=== PATIENT | female | born 1970 | race Caucasian/White ===

== ENCOUNTER → 2017-12-27 08:09 | Outpatient (CLI) | payer BC, SELFPAY ==
[2017-12-27 09:37] LABS: Hemoglobin A1C 5.7 % (0.0-7.0)
[2017-12-27 10:29] LABS: Alanine Aminotransferase 36 U/L (12-78); Albumin/Globulin Ratio 1.2 (1.1-1.8); Alkaline Phosphatase 66 U/L (46-116); Anion Gap 12.6 mEq/L (5-15); Aspartate Amino Transferase 24 U/L (15-37); Bilirubin,Total 0.9 mg/dL (0.2-1.0); Blood Urea Nitrogen 15 mg/dL (7-18); Calcium 9.2 mg/dL (8.5-10.1); Carbon Dioxide 29 mmol/L (21.0-32.0); Chloride 103 mmol/L (98-107); Chol/HDL Ratio 4.4 (1-3.5); Cholesterol 163 mg/dL (140-200); Estimated Glomerular Filt Rate 67 ml/min (>60); GFR (African American) 81 ML/MIN (>60); Globulin 3.3 gm/dl (1.3-3.2); Glucose 145 mg/dL (74-106); HDL Cholesterol 37 mg/dL (29-89); LDL Cholesterol 88 mg/dL (0-130); Potassium 3.6 mmoL/L (3.5-5.1); Sodium 141 mmol/L (136-145); Thyroid Stimulating Hormone 3.17 uIU/ml (0.358-3.740); Total Protein,Serum 7.3 gm/dL (6.4-8.2); Triglycerides 191 mg/dL (30-200); VLDL Cholesterol 38 mg/dL (0-40)
== END ==
PROVIDERS: Visit Provider Nurse Practitioner Family
DX: E11.9 Type 2 diabetes mellitus without complications (principal); E03.9 Hypothyroidism, unspecified
CPT/HCPCS: 36415; 80053; 80061; 83036; 84443

== ENCOUNTER → 2018-07-24 10:32 | Outpatient (CLI) | payer BC, SELFPAY ==
--- NOTE | 2018-07-24 10:45 | CT_ITS ---
CT abdomen pelvis wo con INDICATION: Right flank pain right lower quadrant pain ITS.REASON: RT SIDE LOW BACK PAIN,HEMATURIA ORDERING PHYSICIAN: Iraida Carey PATIENT AGE: 47 years COMPARISON: June 06, 2008 CT abdomen pelvis. TECHNIQUE: No oral nor IV contrast utilized. Axial images obtained with sagittal and coronal reformats. All CT scans at the facility use one or more dose reduction, viz: automated exposure control, ma/kV adjustment per patient size (including targeted exams where dose is matched to indication, i.e. head), or iterative reconstruction technique. FINDINGS: . Lung bases no significant acute findings. Slight coarsening markings at posterior lung bases reflecting some mild chronic changes and atelectasis. Similar to 2008. Heart upper normal in size. Abdomen/pelvis to the lack of oral and IV contrast decreases sensitivity Noncontrast images the liver, spleen, pancreas, adrenals unremarkable. TRACT: Obstructive uropathy on right. RIGHT KIDNEY with mild hydronephrosis. Mild stranding about right kidney most likely reflecting the obstructive uropathy although could reflect early pyelonephritis if findings of such. Right ureteral stone at proximal right ureter. 4.5 mm x 3 mm diameter x 4.5 mm length. This can be seen on the CT filter tip inspector view just to the right of the L2/3 disc space. Finally also note a small just less than 4 mm calculus at upper pole right kidney Left kidney. No calculi. No obstruction. Left ureter unremarkable. PELVIS. Modest size bladder. There is a small curious calcification in the at the periphery of the bladder wall on image 33 is. I suspect is a phlebolith as it resides anterior to a would anticipate the ureter and does not appear to be intraluminal after reviewing all images. IUD in place with the stem of the T slightly skewed to the right as it continues distally the tip of the stem is to the right and I cannot confirm a remains within the endometrial cavity on this CT.. (Axial image 113, coronal. 32) VASCULAR NURSE follow-up suggested this regard Otherwise No adnexal masses or pathology.. No free fluid in cul-de-sac. GI tract. Moderate stool throughout the colon upper normal wall thickness descending colon most likely reflects lack of distention. Terminal ileum unremarkable no good evidence of appendicitis. Small bowel. A few scattered air-fluid levels at proximal small bowel but no significant findings otherwise. Upper normal wall thickness distal esophagus. Osseous structures. No remarkable findings. IMPRESSION 1. Mild right hydronephrosis . Obstructive uropathy on the right. -Due to 4.5 x 3 mm calculus proximal right ureter ( just to the right at L2/3 disc space on filter tip inspector view) ... Associated stranding about the right kidney most likely reflecting the obstructive uropathy. 2. Incidental note that IUD is quite tilted. The inferior stem and tip of IUD seen to deviate significantly to the right and away from the endometrial cavity. Suggest VASCULAR NURSE follow-up, particularly if of pelvic pain or symptoms .
[2018-07-24 12:46] LABS: Hemoglobin A1C 6.2 % (0.0-7.0)
[2018-07-24 13:33] LABS: Alanine Aminotransferase 30 U/L (12-78); Albumin Level 4.1 gm/dL (3.4-5.0); Albumin/Globulin Ratio 1.4 (1.1-1.8); Alkaline Phosphatase 68 U/L (46-116); Anion Gap 9.9 mEq/L (5-15); Aspartate Amino Transferase 15 U/L (15-37); Bilirubin,Total 0.9 mg/dL (0.2-1.0); Blood Urea Nitrogen 22 mg/dL (7-18); Calcium 8.9 mg/dL (8.5-10.1); Carbon Dioxide 30 mmol/L (21.0-32.0); Chloride 104 mmol/L (98-107); Chol/HDL Ratio 3.8 (1-3.5); Cholesterol 150 mg/dL (140-200); Creatinine,Serum 1.26 mg/dL (0.55-1.02); Estimated Glomerular Filt Rate 45 ml/min (>60); GFR (African American) 55 ML/MIN (>60); Glucose 123 mg/dL (74-106); HDL Cholesterol 40 mg/dL (29-89); LDL Cholesterol 81 mg/dL (0-130); Potassium 3.9 mmoL/L (3.5-5.1); Sodium 140 mmol/L (136-145); Thyroid Stimulating Hormone 2.08 uIU/ml (0.358-3.740); Total Protein,Serum 7.1 gm/dL (6.4-8.2); Triglycerides 146 mg/dL (30-200); VLDL Cholesterol 29 mg/dL (0-40)
[2018-07-25 10:17] LABS: Creatinine, Urine 250.9 mg/dL (Not Estab.); Microalbumin, Urine 29.3 ug/mL (Not Estab.)
== END ==
PROVIDERS: PCP Internal Medicine Adolescent Medicine; Visit Provider Nurse Practitioner Family
DX: M54.5 Low back pain (principal); R31.9 Hematuria, unspecified; E11.9 Type 2 diabetes mellitus without complications; E78.5 Hyperlipidemia, unspecified; E03.9 Hypothyroidism, unspecified; I10 Essential (primary) hypertension
CPT/HCPCS: 36415; 74176; 80053; 80061; 82043; 82570; 83036; 84443

== ENCOUNTER → 2018-09-16 09:39 | Outpatient (CLI) | payer BC, SELFPAY ==
[2018-09-16 09:53] LABS: Basophils # 0.1 K/mm3 (0-0.2); Basophils % 0.8 % (0.1-2.0); Eosinophils # 0.1 K/mm3 (0.0-0.4); Eosinophils % 1.9 % (0.1-12.0); Hematocrit 45.2 % (37.0-47.0); Hemoglobin 15.2 g/dL (12.2-16.2); Lymphocytes # 2.1 K/mm3 (0.7-4.5); Lymphocytes % 32.7 % (10-50); Mean Corpuscular HGB Conc 33.7 g/dL (31.8-35.4); Mean Corpuscular Hemoglobin 31.2 pg (27.0-31.2); Mean Corpuscular Volume 92.8 fl (81-99); Monocytes # 0.5 K/mm3 (0.1-1.0); Monocytes % 7.9 % (1.7-9.3); Neutrophils # 3.6 K/mm3 (1.8-7.8); Neutrophils % 56.6 % (37.0-80.0); Platelet Count 289 K/mm3 (142-424); Red Blood Count 4.87 M/mm3 (4.20-5.40); Red Cell Distribution Width 13.1 % (11.5-17.5); White Blood Count 6.4 K/mm3 (4.8-10.8)
[2018-09-16 13:24] LABS: Hemoglobin A1C 5.8 % (0.0-7.0)
[2018-09-16 14:16] LABS: Alanine Aminotransferase 33 U/L (12-78); Albumin/Globulin Ratio 1.3 (1.1-1.8); Alkaline Phosphatase 53 U/L (46-116); Anion Gap 10.6 mEq/L (5-15); Aspartate Amino Transferase 13 U/L (15-37); Bilirubin,Total 0.7 mg/dL (0.2-1.0); Blood Urea Nitrogen 14 mg/dL (7-18); Calcium 9.1 mg/dL (8.5-10.1); Carbon Dioxide 32 mmol/L (21.0-32.0); Chloride 104 mmol/L (98-107); Chol/HDL Ratio 3.6 (1-3.5); Cholesterol 134 mg/dL (140-200); Creatinine,Serum 0.84 mg/dL (0.55-1.02); Estimated Glomerular Filt Rate 72 ml/min (>60); GFR (African American) 87 ML/MIN (>60); Globulin 3.1 gm/dl (1.3-3.2); Glucose 140 mg/dL (74-106); HDL Cholesterol 37 mg/dL (29-89); LDL Cholesterol 75 mg/dL (0-130); Potassium 3.6 mmoL/L (3.5-5.1); Sodium 143 mmol/L (136-145); Thyroid Stimulating Hormone 2.02 uIU/ml (0.358-3.740); Total Protein,Serum 7.1 gm/dL (6.4-8.2); Triglycerides 109 mg/dL (30-200); VLDL Cholesterol 22 mg/dL (0-40)
[2018-09-17 08:12] LABS: Creatinine, Urine 223.1 mg/dL (Not Estab.); Microalbumin, Urine 9.4 ug/mL (Not Estab.)
== END ==
PROVIDERS: Visit Provider Nurse Practitioner Family
DX: E11.9 Type 2 diabetes mellitus without complications (principal); E78.5 Hyperlipidemia, unspecified; E03.9 Hypothyroidism, unspecified; I10 Essential (primary) hypertension; N17.9 Acute kidney failure, unspecified
CPT/HCPCS: 36415; 80053; 80061; 82043; 82570; 83036; 84443; 85025

== ENCOUNTER → 2019-02-27 13:50 | Outpatient (CLI) | payer BC, SELFPAY ==
--- NOTE | 2019-02-27 13:58 | XR_ITS ---
XR KUB HISTORY: ITS.REASON: KIDNEY STONES ORDERING PHYSICIAN: Yordan Chery MD PATIENT AGE: 48 years COMPARISON: 08/02/2018. FINDINGS: There are clips in right upper quadrant from cholecystectomy and IUD device is present in the upper pelvis. There are no calcific densities overlying the renal shadows. There are some small round pelvic calcifications which are stable and likely phleboliths. By gas pattern and soft tissue outlines are normal. There is no acute osseous process. Impression: Cholecystectomy. IUD is present. Pelvic phleboliths. No definite radiopaque calculi overlying the renal areas.
[2019-02-27 16:39] LABS: Hemoglobin A1C 5.7 % (0.0-7.0)
[2019-02-27 16:42] LABS: Alanine Aminotransferase 29 U/L (12-78); Albumin/Globulin Ratio 1.4 (1.1-1.8); Alkaline Phosphatase 53 U/L (46-116); Anion Gap 10.9 mEq/L (5-15); Aspartate Amino Transferase 15 U/L (15-37); Bilirubin,Total 0.8 mg/dL (0.2-1.0); Blood Urea Nitrogen 12 mg/dL (7-18); Calcium 9.1 mg/dL (8.5-10.1); Carbon Dioxide 32 mmol/L (21.0-32.0); Chloride 101 mmol/L (98-107); Chol/HDL Ratio 3.3 (1-3.5); Cholesterol 129 mg/dL (140-200); Creatinine,Serum 0.95 mg/dL (0.55-1.02); Estimated Glomerular Filt Rate 63 ml/min (>60); GFR (African American) 76 ML/MIN (>60); Globulin 2.8 gm/dl (1.3-3.2); Glucose 88 mg/dL (74-106); HDL Cholesterol 39 mg/dL (29-89); LDL Cholesterol 74 mg/dL (0-130); Potassium 3.9 mmoL/L (3.5-5.1); Sodium 140 mmol/L (136-145); Thyroid Stimulating Hormone 1.46 uIU/ml (0.358-3.740); Total Protein,Serum 6.8 gm/dL (6.4-8.2); Triglycerides 80 mg/dL (30-200); VLDL Cholesterol 16 mg/dL (0-40)
[2019-03-01 10:10] LABS: Creatinine, Urine 20.8 mg/dL (Not Estab.); Microalbumin, Urine <3.0 ug/mL (Not Estab.)
== END ==
PROVIDERS: PCP Nurse Practitioner Family; Visit Provider Urology
DX: N20.0 Calculus of kidney (principal); E11.9 Type 2 diabetes mellitus without complications; Z79.84 Long term (current) use of oral hypoglycemic drugs; I10 Essential (primary) hypertension; E78.5 Hyperlipidemia, unspecified; E03.9 Hypothyroidism, unspecified
CPT/HCPCS: 36415; 74018; 80053; 80061; 82043; 82570; 83036; 84443

== ENCOUNTER → 2020-02-02 08:02 | Outpatient (CLI) | payer BC, SELFPAY ==
[2020-02-02 11:04] LABS: Coronavirus 19 IgG Antibody Negative (Negative); Coronavirus 19 IgM Antibody Negative (Negative)
== END ==
PROVIDERS: Visit Provider Internal Medicine Gastroenterology
DX: Z01.818 Encounter for other preprocedural examination (principal)
CPT/HCPCS: 36415; 86328

== ENCOUNTER 2020-02-04 10:46 | Day surgery (SDC) | payer BC, SELFPAY ==
[2020-01-29 10:50] VITALS: BMI 29.1
[2020-02-04 12:02] VITALS: BP 133/77; PULSE 59; RESP 18; TEMP 36.3; O2SAT 100
[2020-02-04 12:09] LABS: Urine Pregnancy, HCG Qual. Negative (Negative)
[2020-02-04 12:24] LABS: POC Glucose,Bedside 103 (70-110)
[2020-02-04 12:52] VITALS: O2SAT 97
--- NOTE | 2020-02-04 13:16 | P.PN_ITS ---
[facility] Anesthesia Checklist - Structural Data Admitted From: Home Planned Operative Procedure/s: colonoscopy Consent for Planned Operative Procedure(s) Verified: Yes - Airway Assessment C-Spine Mobility Assessed: Yes TMJ Mobility Assessed: Yes Dentition: Good Dentition - Neurological Assessment Level of Consciousness: Awake, Alert, Appropriate - Anesthesia Plan Anesthesia Risk discussed: Yes Anesthesia Plan: Verified ASA Class: II Anesthesia Type: MAC [facility] History I have reviewed the patient's past medical history: Yes Medical History: Reports:: Cancer (skin ca), Diabetes Mellitus Type 2, Hyperlipidemia, Hypertension Denies:: Diabetes Mellitus Type 1, Internal Pacemaker, MRSA, Seizures *Have you ever received a pneumonia vaccine?: No *Have you received a flu vaccine this season?: Yes Other Medical History: Reports: Thyroid Disease Anesthesia experience/problems:: none Other Surgeries: Yes: Cancer Surgery, Cholecystectomy, Skin Cancer Excision. No: Pacemaker Amputation: No Fractures: No - *Social History Educational Level: Completed Graduate School Smoking Status: Never smoker Alcohol Intake: never Substance Use Type: denies use *Occupational Status:: employed Housing: house Household Members: spouse, family *Travel in the last 8 weeks: None Family Hx:: No significant family history
--- NOTE | 2020-02-04 13:18 | HMH.PROC ---
[facility] Procedure Note Procedure Note:: Colonoscopy Procedure Report: Colonoscopy with cold snare polypectomy Endoscopist: Favio Montoya II, MD Referring physician: GENNARO Burns Date of Procedure: February 04, 2020 Equipment: Olympus 180 variable stiffness pediatric colonoscope Sedation: MAC sedation Indication: Mrs. Maciel is a 49-year-old female who is here for screening colonoscopy. The patient did have a normal colonoscopy 10 years ago (at which time she had food poisoning). The patient did have a bout of acute diverticulitis in July 2018. She does have occasional flareups of discomfort on the left side. She does have some mild chronic constipation. She reports no rectal bleeding, weight loss or family history of colon cancer. Procedure: Prior to the procedure, a history and physical exam was performed, and patient's medications and allergies were reviewed. The risks, benefits and alternatives of the sedation and procedure were discussed with the patient. All questions were answered and informed consent was obtained. The patient was brought to the procedure room. Patient identification and proposed procedure were verified by the physician and the nurse. The patient was placed in a left lateral decubitus position and the scope was passed under direct vision. Throughout the procedure, the patient's blood pressure, pulse, and oxygen saturations were monitored continuously. The colonoscopy was accomplished without difficulty. The patient tolerated the procedure well. Findings: On digital rectal examination there was normal rectal tone. There were no external hemorrhoids. The colonoscope was introduced through the anal canal to the rectum and advanced to the cecum. The ileocecal valve and appendiceal orifice were identified. The scope was advanced a short distance into the ileum which appeared grossly normal. There was a diminutive 3 mm polyp in the cecum x1 and a 3 mm polyp in the descending x1. Both of these diminutive polyps were removed via cold snare polypectomy. The remainder of the cecum, ascending and transverse colon were normal. There were a few scattered diverticuli throughout the descending and sigmoid colon (LEFT colon). The rectum itself was normal. Upon retroflexion within the rectum there were grade 1 internal hemorrhoids. The preparation was excellent throughout with [place] Preparation Score of 9. The cecal time was 12 minutes. Impression: 1. Diminutive colonic polyps x2 2. Left-sided diverticulosis 3. Grade 1 internal hemorrhoids Plan: I will follow up the polyp pathology and recommend repeat colonoscopy again in 7-10 years based upon the polyp histology. I would encourage dietary measures and a fiber bowel regimen on a long-term daily maintenance basis.
[2020-02-04 13:20] VITALS: BP 98/57; PULSE 78; RESP 16; TEMP 36.6; O2SAT 99
[2020-02-04 13:30] VITALS: BP 110/70; PULSE 66; RESP 16; O2SAT 97
[2020-02-04 13:40] VITALS: BP 119/70; PULSE 66; RESP 16; O2SAT 100
[2020-02-04 13:50] VITALS: BP 134/81; PULSE 61; RESP 16; TEMP 36.6; O2SAT 99
== END 2020-02-04 14:04 | disposition home or self-care (01) ==
LOC: OUTP 10:48
PROVIDERS: PCP Internal Medicine Adolescent Medicine; Visit Provider Internal Medicine Gastroenterology
PROC: 0DJD8ZZ Inspection of Lower Intestinal Tract, Via Natural or Artificial Opening Endoscopic (ICD-10-PCS; CPT 45378; principal; 2020-02-04 12:00)
DX: Z12.11 Encounter for screening for malignant neoplasm of colon (principal); Z87.19 Personal history of other diseases of the digestive system; K63.5 Polyp of colon; K57.30 Diverticulosis of large intestine without perforation or abscess without bleeding; K64.0 First degree hemorrhoids; I10 Essential (primary) hypertension; E11.9 Type 2 diabetes mellitus without complications; E78.5 Hyperlipidemia, unspecified; E03.9 Hypothyroidism, unspecified; I25.2 Old myocardial infarction; Z85.828 Personal history of other malignant neoplasm of skin; Z79.899 Other long term (current) drug therapy
CPT/HCPCS: 45385; 81025; 82962

== ENCOUNTER → 2021-01-01 09:09 | Outpatient (CLI) | payer BC, SELFPAY ==
[2021-01-01 10:01] LABS: Alanine Aminotransferase 19 U/L (12-78); Albumin Level 4.2 g/dl (3.5-5.0); Albumin/Globulin Ratio 1.6 (1.1-1.8); Alkaline Phosphatase 45 U/L (38-126); Anion Gap 8.7 mEq/L (5-15); Aspartate Amino Transferase 29 U/L (14-36); Blood Urea Nitrogen 16 mg/dl (7-17); Carbon Dioxide 32 mmol/L (22.0-30.0); Chloride 103 mmol/L (98-107); Chol/HDL Ratio 3.2 (1-3.5); Cholesterol 128 mg/dl (140-200); Estimated Glomerular Filt Rate 66 ml/min (>60); GFR (African American) 80 ML/MIN (>60); Globulin 2.7 g/dL (1.3-3.2); Glucose 116 mg/dl (74-100); HDL Cholesterol 40 mg/dl (40-60); Potassium 4.7 mmoL/L (3.5-5.1); Sodium 139 mmol/L (136-145); Total Protein,Serum 6.9 g/dl (6.3-8.2); Triglycerides 113 mg/dl (30-150); VLDL Cholesterol 23 mg/dL (0-40)
[2021-01-01 10:12] LABS: Direct LDL Cholesterol 68.34 mg/dL (100-129)
[2021-01-01 10:32] LABS: Thyroid Stimulating Hormone 2.59 uIU/mL (0.465-4.68)
[2021-01-01 12:00] LABS: Creatinine,Urine Random 67 mg/dL (Not Estab.); Microalbumin < 6.000 mg/L (0-16.7)
[2021-01-01 12:24] LABS: Hemoglobin A1C 5.6 % (4.0-6.0)
== END ==
PROVIDERS: Visit Provider Nurse Practitioner Family
DX: E11.9 Type 2 diabetes mellitus without complications (principal); E78.5 Hyperlipidemia, unspecified; E03.9 Hypothyroidism, unspecified; I10 Essential (primary) hypertension; Z79.84 Long term (current) use of oral hypoglycemic drugs
CPT/HCPCS: 36415; 80053; 80061; 82043; 82570; 83036; 84443

== ENCOUNTER → 2021-06-01 09:35 | Outpatient (CLI) | payer BC, SELFPAY ==
[2021-06-01 10:50] LABS: Hemoglobin A1C 5.8 % (4.0-6.0)
[2021-06-01 11:07] LABS: Alanine Aminotransferase 24 U/L (12-78); Albumin/Globulin Ratio 1.4 (1.1-1.8); Alkaline Phosphatase 56 U/L (38-126); Aspartate Amino Transferase 27 U/L (14-36); Bilirubin,Total 0.8 mg/dl (0.2-1.3); Blood Urea Nitrogen 12 mg/dl (7-17); Calcium 9.3 mg/dl (8.4-10.2); Carbon Dioxide 28 mmol/L (22.0-30.0); Chloride 104 mmol/L (98-107); Chol/HDL Ratio 4.2 (1-3.5); Cholesterol 148 mg/dl (140-200); Estimated Glomerular Filt Rate 88 ml/min (>60); GFR (African American) 107 ML/MIN (>60); Globulin 2.9 g/dL (1.3-3.2); Glucose 128 mg/dl (74-100); HDL Cholesterol 35 mg/dl (40-60); Sodium 139 mmol/L (136-145); Total Protein,Serum 6.9 g/dl (6.3-8.2); Triglycerides 188 mg/dl (30-150); VLDL Cholesterol 38 mg/dL (0-40)
[2021-06-01 11:17] LABS: Direct LDL Cholesterol 75.12 mg/dL (100-129)
[2021-06-01 11:38] LABS: Thyroid Stimulating Hormone 1.84 uIU/mL (0.465-4.68)
== END ==
PROVIDERS: Visit Provider Nurse Practitioner Family
DX: I10 Essential (primary) hypertension (principal); E11.9 Type 2 diabetes mellitus without complications; E78.5 Hyperlipidemia, unspecified; E03.9 Hypothyroidism, unspecified; Z79.84 Long term (current) use of oral hypoglycemic drugs
CPT/HCPCS: 36415; 80053; 80061; 83036; 84443

== ENCOUNTER → 2023-01-28 09:46 | Outpatient (CLI) | payer BC, SELFPAY | PROVIDERS: PCP Nurse Practitioner Family; Visit Provider Nurse Practitioner Family | DX: G47.30 Sleep apnea, unspecified (principal); R06.83 Snoring; E66.3 Overweight | CPT/HCPCS: G0399 ==